=== PATIENT | female | born 1930 | race Caucasian/White ===

== ENCOUNTER → 2019-02-05 | Outpatient (CLI) | payer MEDICARE, OTHER ==
--- NOTE | 2019-02-06 11:17 | ECHOF ---
Referral Reason:I48.91 Persistent atrial fibrillation MEASUREMENTS -------- HEIGHT: 160.0 cm WEIGHT: 45.4 kg BP: RVIDd: 2.8 cm (< 3.3) IVSd: 0.8 cm (0.6 - 1.1) LVIDd: 4.2 cm (3.9 - 5.3) LVPWd: 1.1 cm (0.6 - 1.1) IVSs: 1.2 cm LVIDs: 2.8 cm LVPWs: 1.6 cm LA Diam: 5.0 cm (2.7 - 3.8) LAESV Index (A-L): 39.55 ml/m Ao Diam: 2.3 cm (2.0 - 3.7) AV Cusp: 1.3 cm (1.5 - 2.6) LA Diam: 4.5 cm (2.7 - 3.8) MV EXCURSION: 16.920 mm (> 18.000) MV EF SLOPE: 113 mm/s (70 - 150) EPSS: 0.3 cm RAP: 5.00 mmHg RVSP: 39.34 mmHg TAPSE: 21.87 mm FINDINGS -------- Atrial fibrillation. This was a technically adequate study. The left ventricular size is normal. Left ventricular wall thickness is normal. There is mild evelin bal hypokinesis of LV . Overall left ventricular systolic function is mildly impaired with, an EF b etween 45 - 50 %. Left ventricular fillimg pressure cannot be estimated due to Atrial fibrillation. The right ventricle is normal in size. LA is severely dilated >40 ml/m2 The right atrial size is normal. There is mild to moderate aortic valve sclerosis. There is no evidence of aortic regurgitation. Moderate mitral annular calcification present. Severe mitral regurgitation is present. Mild tricuspid regurgitation present. There is mild pulmonary hypertension. There is no pulmonic regurgitation present. The aortic root size is normal. There is no pericardial effusion. CONCLUSIONS -------- 1. Atrial fibrillation. 2. This was a technically adequate study. 3. The left ventricular size is normal. 4. Left ventricular wall thickness is normal. 5. There is mild global hypokinesis of LV . 6. Overall left ventricular systolic function is mildly impaired with, an EF between 45 - 50 %. 7. Left ventricular fillimg pressure cannot be estimated due to Atrial fibrillation. 8. LA is severely dilated >40 ml/m2 9. There is mild to moderate aortic valve sclerosis. 10. Moderate mitral annular calcification present. 11. Severe mitral regurgitation is present. 12. Mild tricuspid regurgitation present. 13. There is mild pulmonary hypertension. 14. There is no pulmonic regurgitation present. 15. The aortic root size is normal. 16. There is no pericardial effusion. BEAM WARPER: Tiffany Goldstein RDCS
== END | disposition home or self-care (01) ==
LOC: RADECHMAIN 14:52
PROVIDERS: ATTEND Internal Medicine
DX: I48.91 Unspecified atrial fibrillation (principal); I08.1 Rheumatic disorders of both mitral and tricuspid valves; I27.20 Pulmonary hypertension, unspecified
CPT/HCPCS: 93306

== ENCOUNTER 2021-02-21 14:12 | Inpatient (IN) | payer MEDICARE, OTHER ==
[2021-02-21 17:07] LABS: Basophils % (A) 0 %; Eosinophils # (A) 0.1 k/uL (0-0.7); Eosinophils % (A) 1 %; HCT 51.1 % (34.0-46.0); HGB 17.3 gm/dL (11.4-16.0); Lymphocytes # (A) 2.2 k/uL (1.0-4.8); Lymphocytes % (A) 15 %; MCH 33.5 pg (25.0-35.0); MCHC 33.9 g/dL (31.0-37.0); MCV 98.8 fL (80.0-100.0); Mean Platelet Volume 11.2; Monocytes # (A) 0.9 k/uL (0-1.0); Monocytes % (A) 6 %; Neutrophils # (A) 11.2 k/uL (1.3-7.7); Neutrophils % (A) 77 %; Platelet Count 199 k/uL (150-450); RBC 5.17 m/uL (3.80-5.40); RDW 12.6 % (11.5-15.5); WBC 14.6 k/uL (3.8-10.6)
[2021-02-21 17:16] LABS: ALT 29 U/L (4-34); AST 32 U/L (14-36); African American GFR (CKD) >90 (>60 ml/min/1.73 sqM); Albumin 3.8 g/dL (3.5-5.0); Alkaline Phosphatase 121 U/L (38-126); Anion Gap 9 mmol/L; Blood Urea Nitrogen 25 mg/dL (7-17); Calcium 9.2 mg/dL (8.4-10.2); Carbon Dioxide 38 mmol/L (22-30); Chloride 84 mmol/L (98-107); Glucose 123 mg/dL (74-99); Non-African American GFR(CKD) 89 (>60 ml/min/1.73 sqM); Sodium 131 mmol/L (137-145); Total Bilirubin 1.4 mg/dL (0.2-1.3); Total Protein 6.4 g/dL (6.3-8.2)
[2021-02-21 18:45] LABS: Appearance,Urine Clear (Clear); Bacteria,Urine Rare /hpf; Bilirubin,Urine Negative (Negative); Blood,Urine Negative (Negative); Color,Urine Yellow; Glucose,Urine (UA) Trace (Negative); Hyaline Casts,Urine 6 /lpf (0-2); Ketones,Urine Negative (Negative); Leukocyte Esterase,Urine Negative (Negative); Mucus,Urine Many /hpf; Nitrite,Urine Negative (Negative); PH, Urine 5.5 (5.0-8.0); Protein,Urine 1+ (Negative); RBC,Urine 1 /hpf (0-5); Squamous Epithelial Cell,Urine 1 /hpf (0-4); WBC,Urine 2 /hpf (0-5)
[2021-02-21] MEDS ORDERED: SODIUM CHLORIDE 0.9% 1,000 ML IV STA ×2 (19:34→21:42)
--- NOTE | 2021-02-21 19:40 | ED ---
General Adult HPI - General Source: patient Mode of arrival: ambulatory Limitations: no limitations <Heidi Hills - Last Filed: 02/22/21 02:54> <Kendrick Estrada - Last Filed: 02/23/21 03:13> - General Chief complaint: Nausea/Vomiting/Diarrhea Stated complaint: possible dehydration, dark stool Time Seen by Provider: 02/21/21 19:10 - History of Present Illness Initial comments: 89-year-old female with a history of atrial fibrillation, previous NC, and hypertension, presents to the emergency department, accompanied by her daughter, for evaluation of weakness. Daughter reports patient had 3-4 consecutive days of vomiting last week in which her emesis was very dark in color. Daughter also reports patient had dark stool on Sunday. Patient states she had no appetite throughout the weekend, but it is beginning to return. Complains of dizziness and weakness at this time. Patient does report taking Eliquis for her A. fib. States she also was prescribed Zofran by her primary care provider which helped to alleviate her nausea and vomiting. Patient denies fever, chills, headache, chest pain, shortness of breath, abdominal pain, and dysuria. (Heidi Hills) - Related Data Home Medications Medication Instructions Recorded Confirmed Apixaban [Eliquis] 2.5 mg PO BID 02/21/21 02/21/21 Aspirin EC [Ecotrin Low Dose] 81 mg PO DAILY 02/21/21 02/21/21 Metoprolol Tartrate [Lopressor] 37.5 mg PO BID 02/21/21 02/21/21 Ondansetron HCl [Zofran] 4 mg PO Q12H PRN 02/21/21 02/21/21 Vit C/E/Zn/Coppr/Lutein/Zeaxan 1 cap PO BID 02/21/21 02/21/21 [Preservision Areds 2 Softgel] Allergies Allergy/AdvReac Type Severity Reaction Status Date / Time No Known Allergies Allergy Verified 02/21/21 22:50 Review of Systems ROS Other: All systems not noted in ROS Statement are negative. <Heidi Hills - Last Filed: 02/22/21 02:54> ROS Other: All systems not noted in ROS Statement are negative. <Kendrick Estrada - Last Filed: 02/23/21 03:13> ROS Statement: Those systems with pertinent positive or pertinent negative responses have been documented in the HPI. Past Medical History Past Medical History: Atrial Fibrillation, Hypertension, Myocardial Infarction (NC) Past Surgical History: No Surgical Hx Reported Smoking Status: Former smoker Past Alcohol Use History: None Reported Past Drug Use History: None Reported <Heidi Hills - Last Filed: 02/22/21 02:54> - Past Family History Mother Sister(s) Family Medical History: No Reported History (Not applicable due to patient's advanced age) <BarbyanKendrick - Last Filed: 02/23/21 03:13> General Exam Limitations: no limitations General appearance: alert, in no apparent distress (Patient appears fatigued but is alert and oriented and responds to questions appropriately) ENT exam: Present: normal exam, normal oropharynx, mucous membranes moist Respiratory exam: Present: normal lung sounds bilaterally. Absent: respiratory distress, wheezes, rales, rhonchi, stridor Cardiovascular Exam: Present: tachycardia, irregular rhythm (Patient's baseline rhythm is atrial fibrillation) GI/Abdominal exam: Present: soft, normal bowel sounds. Absent: distended, tenderness, guarding, rebound Rectal exam: Present: heme (+) stool Neurological exam: Present: alert, oriented X3 Psychiatric exam: Present: normal affect, normal mood Skin exam: Present: warm, dry, intact <Heidi Hills - Last Filed: 02/22/21 02:54> Course Vital Signs 02/21/21 02/21/21 02/22/21 16:20 21:30 00:51 Temperature 98.2 F Pulse Rate 101 H 144 H 106 H Respiratory 18 18 20 Rate Blood Pressure 147/94 146/101 125/80 O2 Sat by Pulse 98 97 94 L Oximetry 02/22/21 02/22/21 02/22/21 02:39 06:00 06:37 Temperature Pulse Rate 101 H 104 H 131 H Respiratory 18 18 18 Rate Blood Pressure 125/80 131/81 131/81 O2 Sat by Pulse 95 95 93 L Oximetry 02/22/21 02/22/21 02/22/21 07:57 08:32 10:54 Temperature 98 F Pulse Rate 107 H 102 H Respiratory 20 20 Rate Blood Pressure 131/81 127/94 99/71 O2 Sat by Pulse 94 L 95 Oximetry Medical Decision Making - Lab Data Result diagrams: 02/21/21 16:57 02/21/21 16:57 - EKG Data -: EKG Interpreted by Me Rate: tachycardia <Heidi Hills - Last Filed: 02/22/21 02:54> - Lab Data Result diagrams: 02/22/21 07:23 02/22/21 07:23 <Kendrick Estrada - Last Filed: 02/23/21 03:13> - Medical Decision Making 89-year-old female is evaluated for decreased appetite, dark stool, and generalized weakness. Physical exam findings include patient with pallor, atrial fibrillation with rapid ventricular rate heart rate fluctuating between 120 and 150, and malaise. Patient was started on a Cardizem drip with improvement of heart rate. Pertinent lab findings include positive Hemoccult and altered electrolytes. Abnormal hemoglobin and hematocrit as well as urine findings were felt to be secondary to her decreased hydration status. Patient will be admitted for further evaluation and treatment. This patient's case was discussed with my attending Dr. Estrada. (Heidi Hills) I saw this patient in conjunction with the physician medical assistant per diem. I performed independent history and physical exam. Agree with case management. (Kendrick Estrada) - Lab Data Lab Results 02/21/21 02/21/21 02/21/21 Range/Units 16:57 16:57 18:32 WBC 14.6 H (3.8-10.6) k/uL RBC 5.17 (3.80-5.40) m/uL Hgb 17.3 H (11.4-16.0) gm/dL Hct 51.1 H (34.0-46.0) % MCV 98.8 (80.0-100.0) fL MCH 33.5 (25.0-35.0) pg MCHC 33.9 (31.0-37.0) g/dL RDW 12.6 (11.5-15.5) % Plt Count 199 (150-450) k/uL MPV 11.2 Absolute Nucleated RBC (0.00-0.00) X 10*3/uL Neutrophils % 77 % Lymphocytes % 15 % Monocytes % 6 % Eosinophils % 1 % Basophils % 0 % Neutrophils # 11.2 H (1.3-7.7) k/uL Lymphocytes # 2.2 (1.0-4.8) k/uL Monocytes # 0.9 (0-1.0) k/uL Eosinophils # 0.1 (0-0.7) k/uL Basophils # 0.0 (0-0.2) k/uL NRBC/100 WBC Diff (0.0-0.0) /100 WBCS PT (9.0-12.0) sec INR (<1.2) APTT (22.0-30.0) sec Sodium 131 L (137-145) mmol/L Potassium 3.0 L (3.5-5.1) mmol/L Chloride 84 L (98-107) mmol/L Carbon Dioxide 38 H (22-30) mmol/L Anion Gap 9 mmol/L BUN 25 H (7-17) mg/dL Creatinine 0.46 L (0.52-1.04) mg/dL Est GFR (CKD-EPI)AfAm >90 (>60 ml/min/1.73 sqM) Est GFR (CKD-EPI)NonAf 89 (>60 ml/min/1.73 sqM) Glucose 123 H (74-99) mg/dL Plasma Lactic Acid Michele (0.7-2.0) mmol/L Calcium 9.2 (8.4-10.2) mg/dL Magnesium (1.6-2.3) mg/dL Total Bilirubin 1.4 H (0.2-1.3) mg/dL AST 32 (14-36) U/L ALT 29 (4-34) U/L Alkaline Phosphatase 121 (38-126) U/L Troponin I (0.000-0.034) ng/mL Total Protein 6.4 (6.3-8.2) g/dL Albumin 3.8 (3.5-5.0) g/dL Globulin g/dL Albumin/Globulin Ratio Urine Color Yellow Urine Appearance Clear (Clear) Urine pH 5.5 (5.0-8.0) Ur Specific Howells 1.020 (1.001-1.035) Urine Protein 1+ H (Negative) Urine Glucose (UA) Trace H (Negative) Urine Ketones Negative (Negative) Urine Blood Negative (Negative) Urine Nitrite Negative (Negative) Urine Bilirubin Negative (Negative) Urine Urobilinogen 3.0 (<2.0) mg/dL Ur Leukocyte Esterase Negative (Negative) Urine RBC 1 (0-5) /hpf Urine WBC 2 (0-5) /hpf Ur Squamous Epith Cells 1 (0-4) /hpf Urine Bacteria Rare H (None) /hpf Hyaline Casts 6 H (0-2) /lpf Urine Mucus Many H (None) /hpf Stool Occult Blood (Negative) Coronavirus (PCR) (Not Detectd) 02/21/21 02/21/21 02/21/21 Range/Units 20:42 20:42 20:42 WBC (3.8-10.6) k/uL RBC (3.80-5.40) m/uL Hgb (11.4-16.0) gm/dL Hct (34.0-46.0) % MCV (80.0-100.0) fL MCH (25.0-35.0) pg MCHC (31.0-37.0) g/dL RDW (11.5-15.5) % Plt Count (150-450) k/uL MPV Absolute Nucleated RBC (0.00-0.00) X 10*3/uL Neutrophils % % Lymphocytes % % Monocytes % % Eosinophils % % Basophils % % Neutrophils # (1.3-7.7) k/uL Lymphocytes # (1.0-4.8) k/uL Monocytes # (0-1.0) k/uL Eosinophils # (0-0.7) k/uL Basophils # (0-0.2) k/uL NRBC/100 WBC Diff (0.0-0.0) /100 WBCS PT 10.4 (9.0-12.0) sec INR 1.0 (<1.2) APTT 22.2 (22.0-30.0) sec Sodium (137-145) mmol/L Potassium (3.5-5.1) mmol/L Chloride (98-107) mmol/L Carbon Dioxide (22-30) mmol/L Anion Gap mmol/L BUN (7-17) mg/dL Creatinine (0.52-1.04) mg/dL Est GFR (CKD-EPI)AfAm (>60 ml/min/1.73 sqM) Est GFR (CKD-EPI)NonAf (>60 ml/min/1.73 sqM) Glucose (74-99) mg/dL Plasma Lactic Acid Michele 1.4 (0.7-2.0) mmol/L Calcium (8.4-10.2) mg/dL Magnesium 2.2 (1.6-2.3) mg/dL Total Bilirubin (0.2-1.3) mg/dL AST (14-36) U/L ALT (4-34) U/L Alkaline Phosphatase (38-126) U/L Troponin I (0.000-0.034) ng/mL Total Protein (6.3-8.2) g/dL Albumin (3.5-5.0) g/dL Globulin g/dL Albumin/Globulin Ratio Urine Color Urine Appearance (Clear) Urine pH (5.0-8.0) Ur Specific Howells (1.001-1.035) Urine Protein (Negative) Urine Glucose (UA) (Negative) Urine Ketones (Negative) Urine Blood (Negative) Urine Nitrite (Negative) Urine Bilirubin (Negative) Urine Urobilinogen (<2.0) mg/dL Ur Leukocyte Esterase (Negative) Urine RBC (0-5) /hpf Urine WBC (0-5) /hpf Ur Squamous Epith Cells (0-4) /hpf Urine Bacteria (None) /hpf Hyaline Casts (0-2) /lpf Urine Mucus (None) /hpf Stool Occult Blood (Negative) Coronavirus (PCR) (Not Detectd) 02/21/21 02/21/21 02/22/21 Range/Units 20:42 22:48 02:39 WBC (3.8-10.6) k/uL RBC (3.80-5.40) m/uL Hgb (11.4-16.0) gm/dL Hct (34.0-46.0) % MCV (80.0-100.0) fL MCH (25.0-35.0) pg MCHC (31.0-37.0) g/dL RDW (11.5-15.5) % Plt Count (150-450) k/uL MPV Absolute Nucleated RBC (0.00-0.00) X 10*3/uL Neutrophils % % Lymphocytes % % Monocytes % % Eosinophils % % Basophils % % Neutrophils # (1.3-7.7) k/uL Lymphocytes # (1.0-4.8) k/uL Monocytes # (0-1.0) k/uL Eosinophils # (0-0.7) k/uL Basophils # (0-0.2) k/uL NRBC/100 WBC Diff (0.0-0.0) /100 WBCS PT (9.0-12.0) sec INR (<1.2) APTT (22.0-30.0) sec Sodium (137-145) mmol/L Potassium (3.5-5.1) mmol/L Chloride (98-107) mmol/L Carbon Dioxide (22-30) mmol/L Anion Gap mmol/L BUN (7-17) mg/dL Creatinine (0.52-1.04) mg/dL Est GFR (CKD-EPI)AfAm (>60 ml/min/1.73 sqM) Est GFR (CKD-EPI)NonAf (>60 ml/min/1.73 sqM) Glucose (74-99) mg/dL Plasma Lactic Acid Michele (0.7-2.0) mmol/L Calcium (8.4-10.2) mg/dL Magnesium (1.6-2.3) mg/dL Total Bilirubin (0.2-1.3) mg/dL AST (14-36) U/L ALT (4-34) U/L Alkaline Phosphatase (38-126) U/L Troponin I 0.013 (0.000-0.034) ng/mL Total Protein (6.3-8.2) g/dL Albumin (3.5-5.0) g/dL Globulin g/dL Albumin/Globulin Ratio Urine Color Urine Appearance (Clear) Urine pH (5.0-8.0) Ur Specific Howells (1.001-1.035) Urine Protein (Negative) Urine Glucose (UA) (Negative) Urine Ketones (Negative) Urine Blood (Negative) Urine Nitrite (Negative) Urine Bilirubin (Negative) Urine Urobilinogen (<2.0) mg/dL Ur Leukocyte Esterase (Negative) Urine RBC (0-5) /hpf Urine WBC (0-5) /hpf Ur Squamous Epith Cells (0-4) /hpf Urine Bacteria (None) /hpf Hyaline Casts (0-2) /lpf Urine Mucus (None) /hpf Stool Occult Blood Positive H (Negative) Coronavirus (PCR) Not Detected (Not Detectd) 02/22/21 02/22/21 Range/Units 07:23 07:23 WBC 8.81 (3.8-10.6) k/uL RBC 4.20 (3.80-5.40) m/uL Hgb 13.6 (11.4-16.0) gm/dL Hct 40.4 (34.0-46.0) % MCV 96.2 (80.0-100.0) fL MCH 32.4 H (25.0-35.0) pg MCHC 33.7 (31.0-37.0) g/dL RDW 13.3 (11.5-15.5) % Plt Count 164 (150-450) k/uL MPV 13.7 H Absolute Nucleated RBC 0 (0.00-0.00) X 10*3/uL Neutrophils % % Lymphocytes % % Monocytes % % Eosinophils % % Basophils % % Neutrophils # (1.3-7.7) k/uL Lymphocytes # (1.0-4.8) k/uL Monocytes # (0-1.0) k/uL Eosinophils # (0-0.7) k/uL Basophils # (0-0.2) k/uL NRBC/100 WBC Diff 0 (0.0-0.0) /100 WBCS PT (9.0-12.0) sec INR (<1.2) APTT (22.0-30.0) sec Sodium 133 L (137-145) mmol/L Potassium 3.0 L (3.5-5.1) mmol/L Chloride 92 L (98-107) mmol/L Carbon Dioxide 37 H (22-30) mmol/L Anion Gap 4 mmol/L BUN 15 (7-17) mg/dL Creatinine 0.42 L (0.52-1.04) mg/dL Est GFR (CKD-EPI)AfAm >90 (>60 ml/min/1.73 sqM) Est GFR (CKD-EPI)NonAf >90 (>60 ml/min/1.73 sqM) Glucose 96 (74-99) mg/dL Plasma Lactic Acid Michele (0.7-2.0) mmol/L Calcium 8.1 L (8.4-10.2) mg/dL Magnesium (1.6-2.3) mg/dL Total Bilirubin 1.5 H (0.2-1.3) mg/dL AST 24 (14-36) U/L ALT 21 (4-34) U/L Alkaline Phosphatase 75 (38-126) U/L Troponin I (0.000-0.034) ng/mL Total Protein 4.9 L (6.3-8.2) g/dL Albumin 2.7 L (3.5-5.0) g/dL Globulin 2.2 g/dL Albumin/Globulin Ratio 1.2 Urine Color Urine Appearance (Clear) Urine pH (5.0-8.0) Ur Specific Howells (1.001-1.035) Urine Protein (Negative) Urine Glucose (UA) (Negative) Urine Ketones (Negative) Urine Blood (Negative) Urine Nitrite (Negative) Urine Bilirubin (Negative) Urine Urobilinogen (<2.0) mg/dL Ur Leukocyte Esterase (Negative) Urine RBC (0-5) /hpf Urine WBC (0-5) /hpf Ur Squamous Epith Cells (0-4) /hpf Urine Bacteria (None) /hpf Hyaline Casts (0-2) /lpf Urine Mucus (None) /hpf Stool Occult Blood (Negative) Coronavirus (PCR) (Not Detectd) - EKG Data EKG Comments: EKG was obtained at 2011 and shows atrial fibrillation with rapid ventricular response, anterior infarct, marked ST abnormality. Ventricular rate 158, MS interval indeterminate, QRS duration 82, QT/QTC 308/499. (Heidi Hills) Critical Care Time Critical Care Time: Yes Total Critical Care Time: 31 <Heidi Hills - Last Filed: 02/22/21 02:54> Disposition Decision Date: 02/22/21 Decision Time: 02:00 <Heidi Hills - Last Filed: 02/22/21 02:54> <Kendrick Estrada - Last Filed: 02/23/21 03:13> Clinical Impression: Atrial fibrillation with RVR, Dehydration, Lower GI bleed Disposition: ADMITTED IP TO THIS [facility] Condition: Serious
[2021-02-21] MEDS ORDERED: DILTIAZEM DRIP BOLUS FROM BAG 1 MG SOLN IV ONE ×2 (20:26)
[2021-02-21 21:02] LABS: Partial Thromboplastin Time 22.2 sec (22.0-30.0); Prothrombin Time 10.4 sec (9.0-12.0)
[2021-02-21] MEDS ORDERED: POTASSIUM CHLORIDE 10 MEQ in WATER FOR INJECTION 1 100ML.BAG IVPB STA (21:30)
--- NOTE | 2021-02-21 22:44 | XR ---
EXAMINATION TYPE: XR chest 2V DATE OF EXAM: 02/21/2021 COMPARISON: NONE HISTORY: Fatigue TECHNIQUE: 2 views FINDINGS: There is large hiatal hernia. Lungs are clear of infiltrate. There is some mild pleural and pulmonary scarring at the right lung apex. Costophrenic angles are clear. There are no hilar masses. IMPRESSION: No active cardiopulmonary disease. Large hiatal hernia.
[2021-02-21] MEDS ORDERED: DILTIAZEM 125 MG in SODIUM CHLORIDE 0.9% 100 ML IV SCH (23:00)
[2021-02-22] MEDS ORDERED: PANTOPRAZOLE 40 MG/10 ML VIAL IVP STA (01:21)
[2021-02-22] MEDS ORDERED: NALOXONE 0.4 MG/ML 1 ML VIAL IV PRN (01:41)
--- NOTE | 2021-02-22 02:08 | P.HPIM ---
History of Present Illness H&P Date: 02/22/21 The patient is an 89-year-old female with a PMH of A. megha on Eliquis who presented to the emergency room with complaints of black vomitus and stools. The history supplemented by the daughter at the bedside. The patient was slightly confused at time of interview. The patient for stat she initially started having nausea with numerous episodes of vomiting roughly 67 days ago. She had 3 days of vomiting after which she noticed some black tarry material in the vomitus. She felt dehydrated and fatigued by that time due to her poor oral intake. She then proceeded to have a bowel movement which also had some black tarry material in it, at which time her daughter became alarmed and decided to b ring her to the emergency room. Patient reports that she has not had any further episodes of vomiting with a past 2-3 days. She denied abdominal pain. Also denied fever, chills, chest pain, shortness of breath. Denied headaches, weakness, numbness, tingling. The patient underwent an extensive evaluation in the emergency room with a chest x-ray showing large hiatal hernia. EKG revealed A. fib with RVR at 158 bpm. Laboratory evaluation was remarkable for leukocytosis of 14.6, hemoglobin 17.3, sodium 131, potassium 3.0, chloride 84, CO2 38, BUN 25, creatinine 0.46, lactic acid 1.4, magnesium 2.2, total bilirubin 1.4, troponin 0.013, UA unremarkable, and a stool occult blood positive. Chase luong was given IV fluids, IV Protonix, and potassium and was started on a Cardizem infusion and subsequently admitted to the medicine service with surgery in consult. Review of systems: Pertinent positives and negatives as discussed in HPI, a complete review of systems was performed and all other systems are negative. Physical examination: General: non toxic, no distress, appears at stated age, frail Derm: no unusual rashes/lesions no unusual ecchymoses, warm, dry Head: atraumatic, normocephalic, symmetric Eyes: EOMI, no lid lag, anicteric sclera, pupils equal round reactive to light ENT: Nose and ears atraumatic, no thrush, no pharyngeal erythema Neck: No thyromegaly, no cervical lymphadenopathy, trachea midline, supple Mouth: no lip lesion, mucus membranes moist Cardiovascular: S1S2 reg, no murmur, positive posterior tibial pulse bilateral, no edema, capillary refill less than 2 seconds Lungs: CTA bilateral, no rhonchi, no rales , no accessory muscle use Abdominal: soft, nontender to palpation, no guarding, no appreciable organomegaly, normal bowel sounds Ext: no gross muscle atrophy, muscle strength 5 out of 5 in all 4 extremities grossly, no contractures, Neuro: CN II-XI grossly intact, light touch intact all 4 extremities, finger to nose within normal limits, Psych: Alert, oriented, appropriate affect Assessment/plan A. fib with RVR -Continue with Cardizem infusion -Hold off on antifungal agent at this time due to patient's reports of black tarry stools and vomitus -Cardiac monitoring Black tarry stools and vomitus -Trend hemoglobin for now -Surgery consulted Hypochloremia and hyponatremia, likely due to poor oral intake and nausea vomiting -Continue with gentle IV hydration and monitor for now Hypokalemia -Replace and monitor Metabolic alkalosis -Likely due to vomiting -Continue with IV fluids and monitor DVT prophylaxis -IPCDs The patient is admitted with an anticipated less than 2 midnight stay for evaluation of afib, rvr CODE STATUS: Full Code Discussed with: Patient, daughter Anticipated discharge date: in am Anticipated discharge place: Home Past Medical History Past Medical History: Atrial Fibrillation, Hypertension, Myocardial Infarction (OR) Past Surgical History: No Surgical Hx Reported Smoking Status: Former smoker Past Alcohol Use History: None Reported Past Drug Use History: None Reported - Past Family History Mother Sister(s) Family Medical History: No Reported History (Not applicable due to patient's advanced age) Medications and Allergies Home Medications Medication Instructions Recorded Confirmed Type Apixaban [Eliquis] 2.5 mg PO BID 02/21/21 02/21/21 History Aspirin EC [Ecotrin Low Dose] 81 mg PO DAILY 02/21/21 02/21/21 History Metoprolol Tartrate [Lopressor] 37.5 mg PO BID 02/21/21 02/21/21 History Ondansetron HCl [Zofran] 4 mg PO Q12H PRN 02/21/21 02/21/21 History Vit C/E/Zn/Coppr/Lutein/Zeaxan 1 cap PO BID 02/21/21 02/21/21 History [Preservision Areds 2 Softgel] Allergies Allergy/AdvReac Type Severity Reaction Status Date / Time No Known Allergies Allergy Verified 02/21/21 22:50 Physical Exam Vitals: Vital Signs Temp Pulse Resp BP Pulse Ox 02/22/21 00:51 106 H 20 125/80 94 L 02/21/21 21:30 144 H 18 146/101 97 02/21/21 16:20 98.2 F 101 H 18 147/94 98 Intake and Output 02/21/21 02/21/21 02/22/21 14:59 22:59 06:59 Other: Weight 48.534 kg Results CBC & Chem 7: 02/21/21 16:57 02/21/21 16:57 Labs: Abnormal Lab Results - Last 24 Hours (Table) 02/21/21 02/21/21 02/21/21 Range/Units 16:57 16:57 18:32 WBC 14.6 H (3.8-10.6) k/uL Hgb 17.3 H (11.4-16.0) gm/dL Hct 51.1 H (34.0-46.0) % Neutrophils # 11.2 H (1.3-7.7) k/uL Sodium 131 L (137-145) mmol/L Potassium 3.0 L (3.5-5.1) mmol/L Chloride 84 L (98-107) mmol/L Carbon Dioxide 38 H (22-30) mmol/L BUN 25 H (7-17) mg/dL Creatinine 0.46 L (0.52-1.04) mg/dL Glucose 123 H (74-99) mg/dL Total Bilirubin 1.4 H (0.2-1.3) mg/dL Urine Protein 1+ H (Negative) Urine Glucose (UA) Trace H (Negative) Urine Bacteria Rare H (None) /hpf Hyaline Casts 6 H (0-2) /lpf Urine Mucus Many H (None) /hpf Stool Occult Blood (Negative) 02/21/21 Range/Units 22:48 WBC (3.8-10.6) k/uL Hgb (11.4-16.0) gm/dL Hct (34.0-46.0) % Neutrophils # (1.3-7.7) k/uL Sodium (137-145) mmol/L Potassium (3.5-5.1) mmol/L Chloride (98-107) mmol/L Carbon Dioxide (22-30) mmol/L BUN (7-17) mg/dL Creatinine (0.52-1.04) mg/dL Glucose (74-99) mg/dL Total Bilirubin (0.2-1.3) mg/dL Urine Protein (Negative) Urine Glucose (UA) (Negative) Urine Bacteria (None) /hpf Hyaline Casts (0-2) /lpf Urine Mucus (None) /hpf Stool Occult Blood Positive H (Negative)
[2021-02-22] MEDS: SODIUM CHLORIDE 0.9% 1,000 ML IV SCH ×3 (02:36→15:44)
[2021-02-22] MEDS: POTASSIUM CHLORIDE ER 20 MEQ TAB.ER PO SCH ×2 (05:12→06:36)
[2021-02-22 08:08] LABS: ALT 21 U/L (4-34); AST 24 U/L (14-36); African American GFR (CKD) >90 (>60 ml/min/1.73 sqM); Albumin 2.7 g/dL (3.5-5.0); Albumin/Globulin Ratio 1.2; Alkaline Phosphatase 75 U/L (38-126); Anion Gap 4 mmol/L; Blood Urea Nitrogen 15 mg/dL (7-17); Calcium 8.1 mg/dL (8.4-10.2); Carbon Dioxide 37 mmol/L (22-30); Chloride 92 mmol/L (98-107); Globulin 2.2 g/dL; Glucose 96 mg/dL (74-99); Non-African American GFR(CKD) >90 (>60 ml/min/1.73 sqM); Sodium 133 mmol/L (137-145); Total Bilirubin 1.5 mg/dL (0.2-1.3); Total Protein 4.9 g/dL (6.3-8.2)
[2021-02-22] MEDS ORDERED: METOPROLOL TARTRATE 12.5 MG TAB PO SCH (09:00)
[2021-02-22] MEDS ORDERED: METOPROLOL TARTRATE 12.5 MG TAB PO STA (10:32)
--- NOTE | 2021-02-22 11:06 | P.PN ---
Subjective Progress Note Date: 02/22/21 Hospital course: Patient is a very pleasant 89-year-old female with a past medical history of atrial fibrillation on Eliquis GERD, and hypertension. She presented to the emergency department with a chief complaint of black tarry emesis and stools. Patient reports that she must have had a viral bug and has been having persistent nausea and vomiting for several days to a week. She states that over the past 3 days she noticed dark colored almost black vomit and black stool. She denies having any diarrhea or hematochezia. She reports nausea, weakness, fatigue and anorexia accompanied this persistent nausea and vomiting. She denies history of GI bleeds, having any abdominal pain or discomfort, fevers, chills, diaphoresis, headache, lightheadedness, dizziness, chest pain, palpitations, shortness of breath, dyspnea with exertion, or any other complaint s at this time. In the emergency department patient was found to be in A. fib RVR with EKG revealing A. fib RVR to 158 bpm. A chest x-ray was then completed revealing a large hiatal hernia. Patient admitted under our services with consultation to cardiology, Dr. Thomas and general surgery, Dr. Brar. Physical exam: Patient seen and fully evaluated at the bedside. She reports that she does have an appetite this morning and has not had any further episodes of nausea or vomiting. She denies having any abdominal pain or discomfort. She remains no thing by mouth pending evaluation and recommendations from general surgery. Hemoglobin is stable at 13.6 this morning. Potassium 3.0 orders for replacement. We will continue to monitor closely. Vital signs reviewed and stable. General: Nontoxic, no distress and appears stated age. Derm: Skin warm and dry, normal coloration for ethnicity. Head: Atraumatic, normocephalic and symmetric. Eyes: EOMs intact, no lid lag, and anicteric sclera Mouth: no lip lesions, mucus membranes moist Cardiovascular: regular rate and rhythm with normal S1S2, no murmur, positive posterior tibial pulses bilaterally, and cap refill < 2 seconds. Lungs: Respirations even, regular, and unlabored on room air. Lungs CTA bilaterally, no rhonchi, no rales, no wheezing, and no accessory muscle usage. Abdominal: soft, nontender to palpation, no guarding, no appreciable organomegaly Ext: ROM intact. No gross muscle atrophy, no edema, no contractures Neuro: Speech clear, face symmetrical and CN II-XII grossly intact with no noted focal neuro deficits Psych: Alert and oriented to person, place, time, and situation. Appropriate and pleasant affect. Assessment and Plan of Care: Atrial fibrillation with RVR, ventricular rate currently controlled -Cardizem infusion was discontinued, metoprolol dose increased to 50 mg twice a day -Cardiology following -Continue to hold Eliquis secondary to patient's reports of black tarry stools and emesis. -Cardiac monitoring Large hiatal hernia Rule out GI bleed secondary to reports of black tarry stools and emesis -Hemoglobin stable -Continue to hold Eliquis -Gen. Surgery consulted, Dr. Brar. Appreciate further recommendations. -Nothing by mouth until cleared by general surgery. Hypochloremia and hyponatremia, likely due to poor oral intake and nausea vomiting -Continue with gentle IV hydration and monitor for now Hypokalemia -Replace and monitor Non-anion gap Metabolic alkalosis -Likely due to vomiting -Continue with IV fluids and monitor The patient is admitted with an anticipated less than 2 midnight stay for evaluation of afib, rvr CODE STATUS: Full Code DVT prophylaxis: Mechanical Discussed with: Patient and RN Anticipated discharge date Clinical course to determine Anticipated discharge place: Home A total of 45 minutes was spent on the care of this complex patient more than 50% of the time was spent in counseling and care coordination. Objective - Vital Signs Vital signs: Vital Signs Temp 98 F 02/22/21 10:54 Pulse 102 H 02/22/21 10:54 Resp 20 02/22/21 10:54 BP 99/71 02/22/21 10:54 Pulse Ox 95 02/22/21 10:54 Intake & Output 02/21/21 02/22/21 02/22/21 18:59 06:59 18:59 Weight 48.534 kg - Labs CBC & Chem 7: 02/22/21 07:23 02/22/21 07:23 Labs: Abnormal Lab Results - Last 24 Hours (Table) 02/21/21 02/21/21 02/21/21 Range/Units 16:57 16:57 18:32 WBC 14.6 H (3.8-10.6) k/uL Hgb 17.3 H (11.4-16.0) gm/dL Hct 51.1 H (34.0-46.0) % Neutrophils # 11.2 H (1.3-7.7) k/uL Sodium 131 L (137-145) mmol/L Potassium 3.0 L (3.5-5.1) mmol/L Chloride 84 L (98-107) mmol/L Carbon Dioxide 38 H (22-30) mmol/L BUN 25 H (7-17) mg/dL Creatinine 0.46 L (0.52-1.04) mg/dL Glucose 123 H (74-99) mg/dL Calcium (8.4-10.2) mg/dL Total Bilirubin 1.4 H (0.2-1.3) mg/dL Total Protein (6.3-8.2) g/dL Albumin (3.5-5.0) g/dL Urine Protein 1+ H (Negative) Urine Glucose (UA) Trace H (Negative) Urine Bacteria Rare H (None) /hpf Hyaline Casts 6 H (0-2) /lpf Urine Mucus Many H (None) /hpf Stool Occult Blood (Negative) 02/21/21 02/22/21 Range/Units 22:48 07:23 WBC (3.8-10.6) k/uL Hgb (11.4-16.0) gm/dL Hct (34.0-46.0) % Neutrophils # (1.3-7.7) k/uL Sodium 133 L (137-145) mmol/L Potassium 3.0 L (3.5-5.1) mmol/L Chloride 92 L (98-107) mmol/L Carbon Dioxide 37 H (22-30) mmol/L BUN (7-17) mg/dL Creatinine 0.42 L (0.52-1.04) mg/dL Glucose (74-99) mg/dL Calcium 8.1 L (8.4-10.2) mg/dL Total Bilirubin 1.5 H (0.2-1.3) mg/dL Total Protein 4.9 L (6.3-8.2) g/dL Albumin 2.7 L (3.5-5.0) g/dL Urine Protein (Negative) Urine Glucose (UA) (Negative) Urine Bacteria (None) /hpf Hyaline Casts (0-2) /lpf Urine Mucus (None) /hpf Stool Occult Blood Positive H (Negative)
[2021-02-22 12:13] LABS: HCT 40.4 % (37.2-46.3); HGB 13.6 g/dL (12.0-15.0); MCH 32.4 pg (27.0-32.0); MCHC 33.7 g/dL (32.0-37.0); MCV 96.2 fL (80.0-97.0); Mean Platelet Volume 13.7 fL (9.5-12.2); Platelet Count 164 X 10*3/uL (140-440); RDW 13.3 % (11.5-14.5); WBC 8.81 X 10*3/uL (4.50-10.00)
--- NOTE | 2021-02-22 12:14 | P.CRDCN ---
History of Present Illness History of present illness: HISTORY OF PRESENTING ILLNESS This is a pleasant 89-year-old female past medical history significant for atrial fibrillation and hypertension. She does not follow with a cardiolog ist. She states she was diagnosed by her primary care physician approximately 2 years ago with atrial fibrillation. She is not sure if she isn't at all that time or if it comes and goes. We have been asked to see in consultation for A. fib with RVR. She presented to the hospital with a three-day history of nausea, vomiting dark emesis and one episode of black stool. On arrival to the emergency department she was found to be in A. fib with rapid ventricular rates. She has been initiated on a Cardizem infusion. The patient is seen and examined in the emergency department with her daughter at the bedside. She denies any symptoms related to A. fib. She has no chest pain, shortness of donnell ath, dizziness or palpitations. Overall she feels tired. She did test positive for occult blood in the stool. She is awaiting a surgical consultation as well. Eliquis has been placed on hold. Chest x-ray is negative for an acute cardiopulmonary process with evidence of a large hiatal hernia. Laboratory data reviewed, WBC 14.6, hemoglobin 17.3, platelets 199, sodium 131, potassium 3, creatinine 0.46, magnesium 2.2 and troponin negative 1 Previous echocardiogram obtained in 2019 revealed mildly impaired LV systolic function with global LV hypokinesia with ejection fraction 45-50%, severe mitral regurgitation, mild tricuspid regurgitation, mild pulmonary hypertension and of note she was in A. fib at that time. Current daily cardiac medications include Eliquis 2.5 mg twice a day, aspirin 81 mg daily and Lopressor 37.5 mg twice a day. REVIEW OF SYSTEMS At the time of my exam: CONSTITUTIONAL: Complains of generalized weakness and fatigue. Denies fever or chills. CARDIOVASCULAR: Denies chest pain, shortness of breath, orthopnea, PND or palpitations. RESPIRATORY: Denies cough. GASTROINTESTINAL: Denies abdominal pain, diarrhea, constipation, nausea or vomiting. MUSCULOSKELETAL: Denies myalgias. NEUROLOGIC: Denies numbness, tingling, headache or weakness. ENDOCRINE: Denies fatigue, weight change, polydipsia or polyurina. GENITOURINARY: Denies burning, hematuria or urgency with micturation. HEMATOLOGIC: Denies history of anemia or bleeding. PHYSICAL EXAMINATION Blood pressure 127/94 heart rate 107 afebrile and maintaining oxygen saturation on room air. CONSTITUTIONAL: No apparent distress. HEENT: Head is normocephalic. Pupils are equal, round. Sclerae anicteric. Mucous membranes of the mouth are moist. No JVD. No carotid bruit. CHEST EXAMINATION: Lungs are clear to auscultation. No chest wall tenderness is noted on palpation or with deep breathing. HEART EXAMINATION: Irregular rate and rhythm. S1, S2 heard. Systolic ejection murmur at the left sternal border and apex, no gallops or rub. ABDOMEN: Soft, nontender. EXTREMITIES: 2+ peripheral pulses, no lower extremity edema and no calf tenderness. NEUROLOGIC EXAMINATION: Patient is awake, alert and oriented x3. ASSESSMENT Chronic persistent atrial fibrillation with rapid ventricular rate Acute GI bleed Leukocytosis Hypokalemia Hypertension Dehydration PLAN Continue Cardizem infusion. Hold Eliquis and discontinue aspirin. Increase Lopressor to 50 mg twice a day. Repeat 2-D echocardiogram and Doppler study to assess cardiac structure and function. Further recommendations to follow based on clinical course. Thank you kindly for this consultation. Nurse Practitioner note has been reviewed, I agree with a documented findings and plan of care. Patient was seen and examined. Past Medical History Past Medical History: Atrial Fibrillation, Hypertension, Myocardial Infarction ([place]) Past Surgical History: No Surgical Hx Reported Smoking Status: Former smoker Past Alcohol Use History: None Reported Past Drug Use History: None Reported - Past Family History Mother Sister(s) Family Medical History: No Reported History (Not applicable due to patient's advanced age) Medications and Allergies Home Medications Medication Instructions Recorded Confirmed Type Apixaban [Eliquis] 2.5 mg PO BID 02/21/21 02/21/21 History Aspirin EC [Ecotrin Low Dose] 81 mg PO DAILY 02/21/21 02/21/21 History Metoprolol Tartrate [Lopressor] 37.5 mg PO BID 02/21/21 02/21/21 History Ondansetron HCl [Zofran] 4 mg PO Q12H PRN 02/21/21 02/21/21 History Vit C/E/Zn/Coppr/Lutein/Zeaxan 1 cap PO BID 02/21/21 02/21/21 History [Preservision Areds 2 Softgel] Allergies Allergy/AdvReac Type Severity Reaction Status Date / Time No Known Allergies Allergy Verified 02/21/21 22:50 Physical Exam Vitals: Vital Signs Temp Pulse Resp BP Pulse Ox 02/22/21 07:57 107 H 20 131/81 94 L 02/22/21 06:37 131 H 18 131/81 93 L 02/22/21 06:00 104 H 18 131/81 95 02/22/21 02:39 101 H 18 125/80 95 02/22/21 00:51 106 H 20 125/80 94 L 02/21/21 21:30 144 H 18 146/101 97 02/21/21 16:20 98.2 F 101 H 18 147/94 98 Intake and Output 02/21/21 02/22/21 02/22/21 22:59 06:59 14:59 Other: Weight 48.534 kg Results 02/21/21 16:57 02/22/21 07:23 Cardiac Enzymes 02/21/21 02/21/21 Range/Units 16:57 20:42 AST 32 (14-36) U/L Troponin I 0.013 (0.000-0.034) ng/mL Coagulation 02/21/21 Range/Units 20:42 PT 10.4 (9.0-12.0) sec APTT 22.2 (22.0-30.0) sec CBC 02/21/21 Range/Units 16:57 WBC 14.6 H (3.8-10.6) k/uL RBC 5.17 (3.80-5.40) m/uL Hgb 17.3 H (11.4-16.0) gm/dL Hct 51.1 H (34.0-46.0) % Plt Count 199 (150-450) k/uL Comprehensive Metabolic Panel 02/21/21 Range/Units 16:57 Sodium 131 L (137-145) mmol/L Potassium 3.0 L (3.5-5.1) mmol/L Chloride 84 L (98-107) mmol/L Carbon Dioxide 38 H (22-30) mmol/L BUN 25 H (7-17) mg/dL Creatinine 0.46 L (0.52-1.04) mg/dL Glucose 123 H (74-99) mg/dL Calcium 9.2 (8.4-10.2) mg/dL AST 32 (14-36) U/L ALT 29 (4-34) U/L Alkaline Phosphatase 121 (38-126) U/L Total Protein 6.4 (6.3-8.2) g/dL Albumin 3.8 (3.5-5.0) g/dL Current Medications Generic Name Dose Route Start Last Admin Trade Name Freq PRN Reason Stop Dose Admin Diltiazem HCl 125 mg/ Sodium 125 mls @ 5 mls/hr 02/21/21 23:00 02/22/21 00:04 Chloride IV 5 mg/hr .Q24H KRISTA 5 mls/hr Administration 5 MG/HR Sodium Chloride 1,000 mls @ 130 mls/hr 02/22/21 01:45 02/22/21 02:36 Saline 0.9% IV Not Given .[id number] [facility] Metoprolol Tartrate 37.5 mg 02/22/21 09:00 Metoprolol Tartrate 12.5 Mg Tab PO BID [facility] Naloxone HCl 0.2 mg 02/22/21 01:41 Naloxone 0.4 Mg/Ml 1 Ml Vial IV Q2M PRN Opioid Reversal Intake and Output 02/21/21 02/22/21 02/22/21 22:59 06:59 14:59 Other: Weight 48.534 kg 02/21/21 16:57 02/21/21 16:57
--- NOTE | 2021-02-22 12:45 | ECHOF ---
Referral Reason:afib MEASUREMENTS -------- HEIGHT: 162.6 cm WEIGHT: 47.2 kg BP: RVIDd: 3.6 cm (< 3.3) IVSd: 0.8 cm (0.6 - 1.1) LVIDd: 3.3 cm (3.9 - 5.3) LVPWd: 1.5 cm (0.6 - 1.1) IVSs: 1.1 cm LVIDs: 2.8 cm LVPWs: 1.4 cm LA Diam: 5.3 cm (2.7 - 3.8) LAESV Index (A-L): 66.70 ml/m Ao Diam: 2.8 cm (2.0 - 3.7) AV Cusp: 1.2 cm (1.5 - 2.6) LA Diam: 5.4 cm (2.7 - 3.8) MV EXCURSION: 18.395 mm (> 18.000) MV EF SLOPE: 82 mm/s (70 - 150) EPSS: 0.2 cm RAP: 20.00 mmHg RVSP: 60.81 mmHg FINDINGS -------- Atrial fibrillation. This was a technically good study. LV size, wall thickness and systolic function are normal, with an EF greater than 55%. The left fabi tricular size is normal. The right ventricle is normal in size. LA is severely dilated >40 ml/m2 The right atrial size is normal. There is mild aortic valve sclerosis. There is no evidence of aortic regurgitation. Mild mitral annular calcification present. Moderate mitral regurgitation is present. Moderate to severe tricuspid regurgitation present. There is moderate pulmonary hypertension. The right ventricular systolic pressure, as measured by Doppler, is 60.81mmHg. Trace/mild (physiologic) pulmonic regurgitation. There is no pericardial effusion. CONCLUSIONS -------- 1. LV size, wall thickness and systolic function are normal, with an EF greater than 55%. 2. The left ventricular size is normal. 3. The right ventricle is normal in size. 4. LA is severely dilated >40 ml/m2 5. The right atrial size is normal. 6. There is mild aortic valve sclerosis. 7. Mild mitral annular calcification present. 8. Moderate mitral regurgitation is present. 9. Moderate to severe tricuspid regurgitation present. 10. There is moderate pulmonary hypertension. 11. The right ventricular systolic pressure, as measured by Doppler, is 60.81mmHg. 12. Trace/mild (physiologic) pulmonic regurgitation. 13. There is no pericardial effusion. HEAT TREATING BLUER: Tiffany Goldstein RDCS
--- NOTE | 2021-02-22 14:53 | P.GSCN ---
History of Present Illness Consult date: 02/22/21 History of present illness: CHIEF COMPLAINT: Black stool and vomiting dark material HISTORY OF PRESENT ILLNESS: This is a 89-year-old female with a known history of atrial fibrillation and anticoagulated with the Eliquis. She presents to the hospital with 3-4 days of vomiting of dark material and a black stool on Sunday. She denies any abdominal pain. Her last EGD was about 15 years ago and patient reports it is negative. She doesn't recall ever having a colonoscopy. Hemoglobin on admission was 17.3. Repeat hemoglobin 13.6 and stool was positive for occult blood. Surgical service consulted for GI bleed. Patient denies any NSAID use. PAST MEDICAL HISTORY: Atrial fibrillation anticoagulated with Eliquis, hypertension, myocardial infarction PAST SURGICAL HISTORY: None MEDICATIONS: See list. ALLERGIES: See list. SOCIAL HISTORY: No illicit drug use. Former smoker REVIEW OF SYSTEMS: CONSTITUTIONAL: Denies fever or chills. HEENT: Denies blurred vision, vision changes, or eye pain. Denies hemoptysis CARDIOVASCULAR: Denies chest pain or pressure. RESPIRATORY: No shortness of breath. GASTROINTESTINAL: See HPI for pertinent findings HEMATOLOGIC: Denies bleeding disorders. GENITOURINARY: Denies any blood in urine or increased urinary frequency. SKIN: Denies pruitis. Denies rash. PHYSICAL EXAM: VITAL SIGNS: Reviewed GENERAL: Well-developed in no acute distress. HEENT: No sclera icterus. Extraocular movements grossly intact. Moist buccal mucosa. Head is atraumatic, normocephalic. No nasal drainage. ABDOMEN: Soft. Nondistended. Nontender NEUROLOGIC: Alert and oriented. Cranial nerves II through XII grossly intact. LABORATORY DATA: WBC is 14.6 down to 8.81 hemoglobin 17.3 down to 13.6 platelets 164 INR 1.0 sodium 133 potassium 3.0 creatinine 0.4 to magnesium 2.2 Fecal occult blood positive Urinalysis negative for infection COVID-19 not detected IMAGING: Chest x-ray no active cardiopulmonary disease. Large hiatal hernia Echo with an EF greater than 55% moderate mitral regurgitation, moderate to severe tricuspid regurgitation, moderate pulmonary hypertension ASSESSMENT: 1. Acute GI bleed with vomiting dark material 3 days and black stool 1 2. Hypokalemia PLAN: -Patient scheduled for EGD and colonoscopy on , 02/24/[address] pulido -Patient to have full liquid diet today and start clear liquids tomorrow -Patient to start GoLYTELY prep tomorrow -Hold Eliquis -Continue to replace potassium Thank you for this consultation Physician [facility] Coordinator note has been reviewed by physician. Signing provider agrees with the documented findings, assessment, and plan of care. Past Medical History Past Medical History: Atrial Fibrillation, Hypertension, Myocardial Infarction ([place]) Past Surgical History: No Surgical Hx Reported Smoking Status: Former smoker Past Alcohol Use History: None Reported Past Drug Use History: None Reported - Past Family History Mother Sister(s) Family Medical History: No Reported History (Not applicable due to patient's advanced age) Medications and Allergies Home Medications Medication Instructions Recorded Confirmed Type Apixaban [Eliquis] 2.5 mg PO BID 02/21/21 02/21/21 History Aspirin EC [Ecotrin Low Dose] 81 mg PO DAILY 02/21/21 02/21/21 History Metoprolol Tartrate [Lopressor] 37.5 mg PO BID 02/21/21 02/21/21 History Ondansetron HCl [Zofran] 4 mg PO Q12H PRN 02/21/21 02/21/21 History Vit C/E/Zn/Coppr/Lutein/Zeaxan 1 cap PO BID 02/21/21 02/21/21 History [Preservision Areds 2 Softgel] Allergies Allergy/AdvReac Type Severity Reaction Status Date / Time No Known Allergies Allergy Verified 02/21/21 22:50 Surgical - Exam Vital Signs Temp Pulse Resp BP Pulse Ox 98.2 F 101 H 18 147/94 98 02/21/21 16:20 02/21/21 16:20 02/21/21 16:20 02/21/21 16:20 02/21/21 16:20 Results - Labs 02/22/21 07:23 02/22/21 07:23 Abnormal Lab Results - Last 24 Hours (Table) 02/21/21 02/21/21 02/21/21 Range/Units 16:57 16:57 18:32 WBC 14.6 H (3.8-10.6) k/uL Hgb 17.3 H (11.4-16.0) gm/dL Hct 51.1 H (34.0-46.0) % MCH (27.0-32.0) pg MPV (9.5-12.2) fL Neutrophils # 11.2 H (1.3-7.7) k/uL Sodium 131 L (137-145) mmol/L Potassium 3.0 L (3.5-5.1) mmol/L Chloride 84 L (98-107) mmol/L Carbon Dioxide 38 H (22-30) mmol/L BUN 25 H (7-17) mg/dL Creatinine 0.46 L (0.52-1.04) mg/dL Glucose 123 H (74-99) mg/dL Calcium (8.4-10.2) mg/dL Total Bilirubin 1.4 H (0.2-1.3) mg/dL Total Protein (6.3-8.2) g/dL Albumin (3.5-5.0) g/dL Urine Protein 1+ H (Negative) Urine Glucose (UA) Trace H (Negative) Urine Bacteria Rare H (None) /hpf Hyaline Casts 6 H (0-2) /lpf Urine Mucus Many H (None) /hpf Stool Occult Blood (Negative) 02/21/21 02/22/21 02/22/21 Range/Units 22:48 07:23 07:23 WBC (3.8-10.6) k/uL Hgb (11.4-16.0) gm/dL Hct (34.0-46.0) % MCH 32.4 H (27.0-32.0) pg MPV 13.7 H (9.5-12.2) fL Neutrophils # (1.3-7.7) k/uL Sodium 133 L (137-145) mmol/L Potassium 3.0 L (3.5-5.1) mmol/L Chloride 92 L (98-107) mmol/L Carbon Dioxide 37 H (22-30) mmol/L BUN (7-17) mg/dL Creatinine 0.42 L (0.52-1.04) mg/dL Glucose (74-99) mg/dL Calcium 8.1 L (8.4-10.2) mg/dL Total Bilirubin 1.5 H (0.2-1.3) mg/dL Total Protein 4.9 L (6.3-8.2) g/dL Albumin 2.7 L (3.5-5.0) g/dL Urine Protein (Negative) Urine Glucose (UA) (Negative) Urine Bacteria (None) /hpf Hyaline Casts (0-2) /lpf Urine Mucus (None) /hpf Stool Occult Blood Positive H (Negative) Diabetes panel 02/21/21 02/22/21 Range/Units 16:57 07:23 Sodium 131 L 133 L (137-145) mmol/L Potassium 3.0 L 3.0 L (3.5-5.1) mmol/L Chloride 84 L 92 L (98-107) mmol/L Carbon Dioxide 38 H 37 H (22-30) mmol/L BUN 25 H 15 (7-17) mg/dL Creatinine 0.46 L 0.42 L (0.52-1.04) mg/dL Glucose 123 H 96 (74-99) mg/dL Calcium 9.2 8.1 L (8.4-10.2) mg/dL AST 32 24 (14-36) U/L ALT 29 21 (4-34) U/L Alkaline Phosphatase 121 75 (38-126) U/L Total Protein 6.4 4.9 L (6.3-8.2) g/dL Albumin 3.8 2.7 L (3.5-5.0) g/dL Calcium panel 02/21/21 02/22/21 Range/Units 16:57 07:23 Calcium 9.2 8.1 L (8.4-10.2) mg/dL Albumin 3.8 2.7 L (3.5-5.0) g/dL Pituitary panel 02/21/21 02/22/21 Range/Units 16:57 07:23 Sodium 131 L 133 L (137-145) mmol/L Potassium 3.0 L 3.0 L (3.5-5.1) mmol/L Chloride 84 L 92 L (98-107) mmol/L Carbon Dioxide 38 H 37 H (22-30) mmol/L BUN 25 H 15 (7-17) mg/dL Creatinine 0.46 L 0.42 L (0.52-1.04) mg/dL Glucose 123 H 96 (74-99) mg/dL Calcium 9.2 8.1 L (8.4-10.2) mg/dL Adrenal panel 02/21/21 02/22/21 Range/Units 16:57 07:23 Sodium 131 L 133 L (137-145) mmol/L Potassium 3.0 L 3.0 L (3.5-5.1) mmol/L Chloride 84 L 92 L (98-107) mmol/L Carbon Dioxide 38 H 37 H (22-30) mmol/L BUN 25 H 15 (7-17) mg/dL Creatinine 0.46 L 0.42 L (0.52-1.04) mg/dL Glucose 123 H 96 (74-99) mg/dL Calcium 9.2 8.1 L (8.4-10.2) mg/dL Total Bilirubin 1.4 H 1.5 H (0.2-1.3) mg/dL AST 32 24 (14-36) U/L ALT 29 21 (4-34) U/L Alkaline Phosphatase 121 75 (38-126) U/L Total Protein 6.4 4.9 L (6.3-8.2) g/dL Albumin 3.8 2.7 L (3.5-5.0) g/dL
[2021-02-22] MEDS: POTASSIUM CHLORIDE 10 MEQ in WATER FOR INJECTION 1 100ML.BAG IVPB SCH ×4 (15:44→22:28)
[2021-02-22] MEDS: METOPROLOL TARTRATE 50 MG TAB PO SCH (19:05)
[2021-02-22] MEDS: PANTOPRAZOLE 40 MG/10 ML VIAL IVP SCH (22:28)
[2021-02-23] MEDS: SODIUM CHLORIDE 0.9% 1,000 ML IV SCH ×4 (02:49→20:02)
[2021-02-23] MEDS: METOPROLOL TARTRATE 25 MG TAB PO SCH ×3 (05:19→20:01)
[2021-02-23 07:37] LABS: African American GFR (CKD) >90 (>60 ml/min/1.73 sqM); Anion Gap 4 mmol/L; Blood Urea Nitrogen 6 mg/dL (7-17); Calcium 8.7 mg/dL (8.4-10.2); Carbon Dioxide 33 mmol/L (22-30); Chloride 99 mmol/L (98-107); Glucose 92 mg/dL (74-99); Non-African American GFR(CKD) >90 (>60 ml/min/1.73 sqM); Potassium 3.9 mmol/L (3.5-5.1); Sodium 136 mmol/L (137-145)
[2021-02-23] MEDS ORDERED: PEG 3350-NA SULF,BICARB,CL/KCL 4,000 ML BOTTLE PO ONE (08:00)
[2021-02-23] MEDS: PANTOPRAZOLE 40 MG/10 ML VIAL IVP SCH ×2 (09:27→20:00)
[2021-02-23] MEDS: METOPROLOL TARTRATE 50 MG TAB PO SCH (09:38)
[2021-02-23 09:57] LABS: Basophils # (A) 0.1 k/uL (0-0.2); Basophils % (A) 1 %; Eosinophils # (A) 0.2 k/uL (0-0.7); Eosinophils % (A) 2 %; HCT 45.8 % (34.0-46.0); HGB 14.9 gm/dL (11.4-16.0); Lymphocytes % (A) 21 %; MCH 33.5 pg (25.0-35.0); MCHC 32.5 g/dL (31.0-37.0); MCV 102.9 fL (80.0-100.0); Macrocytosis Slight; Mean Platelet Volume 11.4; Monocytes # (A) 0.6 k/uL (0-1.0); Monocytes % (A) 6 %; Neutrophils # (A) 6.8 k/uL (1.3-7.7); Neutrophils % (A) 69 %; Platelet Count 178 k/uL (150-450); RBC 4.45 m/uL (3.80-5.40); WBC 9.9 k/uL (3.8-10.6)
--- NOTE | 2021-02-23 12:30 | P.PN ---
Subjective HISTORY OF PRESENTING ILLNESS This is a pleasant 89-year-old female past medical history significant for atrial fibrillation and hypertension. 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 She states she was diagnosed by her primary care physician approximately 2 years ago with atrial fibrillation. She is not sure if she isn't at all that time or if it comes and goes. We have been asked to see in consultation for A. fib with RVR. She presented to the hospital with a three- day history of nausea, vomiting dark emesis and one episode of black stool. On arrival to the emergency department she was found to be in A. fib with rapid ventricular rates. She has been initiated on a Cardizem infusion. The patient is seen and examined in the emergency department with her daughter at the bedside. She denies any symptoms related to A. fib. She has no chest pain, shortness of breath, dizziness or palpitations. Overall she feels tired. She did test positive for occult blood in the stool. She is awaiting a surgical consultation as well. Eliquis has been placed on hold. Chest x-ray is negative for an acute cardiopulmonary process with evidence of a large hiatal hernia. Laboratory data reviewed, WBC 14.6, hemoglobin 17.3, platelets 199, sodium 131, potassium 3, creatinine 0.46, magnesium 2.2 and troponin negative 1 Previous e chocardiogram obtained in 2019 revealed mildly impaired LV systolic function with global LV hypokinesia with ejection fraction 45-50%, severe mitral regurgitation, mild tricuspid regurgitation, mild pulmonary hypertension and of note she was in A. fib at that time. Current daily cardiac medications include Eliquis 2.5 mg twice a day, aspirin 81 mg daily and Lopressor 37.5 mg twice a day. 02/23/2021 Pt seen and examined sitting up in no acute distress. She continues to have variable ventricular rates. Currently blood pressure 140/90 heart rate 114 afebrile and maintaining oxygen saturation on room air. Laboratory data reviewed, WBC 9.9, hgb 14.9, plt 178, sodium 136, potassium 3.9, creatinine 0.35. Echocardiogram obtained reveals preserved LV systolic function with ejection fraction greater than 55%, moderate mitral regurgitation, moderate to severe tricuspid regurgitation and moderate pulmonary hypertension with RVSP of 60 mmHg. PHYSICAL EXAMINATION CONSTITUTIONAL: No apparent distress. HEENT: Head is normocephalic. Pupils are equal, round. Sclerae anicteric. Mucous membranes of the mouth are moist. No JVD. No carotid bruit. CHEST EXAMINATION: Lungs are clear to auscultation. No chest wall tenderness is noted on palpation or with deep breathing. HEART EXAMINATION: Irregular rate and rhythm. S1, S2 heard. Systolic ejection murmur at the left sternal border and apex, no gallops or rub. EXTREMITIES: 2+ peripheral pulses, no lower extremity edema and no calf tenderness. ASSESSMENT Chronic persistent atrial fibrillation with rapid ventricular rate Acute GI bleed Leukocytosis Hypokalemia Hypertension Dehydration PLAN Hold eliquis for scope tomorrow. Resume when appropriate per surgery. Increase lopressor to 75 mg BID today for high heart rates. Nurse Practitioner note has been reviewed, I agree with a documented findings and plan of care. Patient was seen and examined. Objective - Vital Signs Vital signs: Vital Signs Temp 98.1 F 02/23/21 07:00 Pulse 114 H 02/23/21 07:00 Resp 18 02/23/21 08:00 BP 149/90 02/23/21 07:00 Pulse Ox 94 L 02/23/21 07:00 Intake & Output 02/22/21 02/23/21 02/23/21 18:59 06:59 18:59 Intake Total 120 Output Total 1200 Balance 120 -1200 Intake: Oral 120 Output: Urine 1200 Other: Voiding Method Incontinent External Catheter - Labs CBC & Chem 7: 02/23/21 06:13 02/23/21 06:13 Labs: Abnormal Lab Results - Last 24 Hours (Table) 02/22/21 02/23/21 02/23/21 Range/Units 07:23 06:13 06:13 MCV 102.9 H (80.0-100.0) fL MCH 32.4 H (27.0-32.0) pg MPV 13.7 H (9.5-12.2) fL Sodium 136 L (137-145) mmol/L Carbon Dioxide 33 H (22-30) mmol/L BUN 6 L (7-17) mg/dL Creatinine 0.35 L (0.52-1.04) mg/dL Microbiology - Last 24 Hours (Table) 02/21/21 20:42 Blood Culture - Preliminary Blood No Growth after 24 hours 02/21/21 20:42 Blood Culture - Preliminary Blood No Growth after 24 hours
--- NOTE | 2021-02-23 12:40 | P.PN ---
Subjective Progress Note Date: 02/23/21 Patient with some lightheadedness, dizziness today. Labs demonstrated stable white blood cell count, hemoglobin. Platelet for EGD/colonoscopy tomorrow. Heart rates are still uncontrolled, increasing beta anthony. Objective - Vital Signs Vital signs: Vital Signs Temp 98.1 F 02/23/21 07:00 Pulse 114 H 02/23/21 07:00 Resp 18 02/23/21 08:00 BP 149/90 02/23/21 07:00 Pulse Ox 94 L 02/23/21 07:00 Intake & Output 02/22/21 02/23/21 02/23/21 18:59 06:59 18:59 Intake Total 120 Output Total 1200 Balance 120 -1200 Intake: Oral 120 Output: Urine 1200 Other: Voiding Method Incontinent External Catheter - Exam Gen: awake, alert HEENT: normocephalic, atraumatic, good hearing acuity, moist mucous membranes Resp: good air exchange, breathing comfortably with no accessory muscle use, clear to auscultation bilaterally CVS: good distal perfusion x 4, irregular rhythm, tachycardic, no murmurs GI: soft, NTTP, ND : no SPT, no CVAT, samuel catheter not present MSK: no pitting edema, no clubbing Neuro: non-focal, moving all extremities Psych: cooperative, euthymic mood - Labs CBC & Chem 7: 02/23/21 06:13 02/23/21 06:13 Labs: Abnormal Lab Results - Last 24 Hours (Table) 02/23/21 02/23/21 Range/Units 06:13 06:13 MCV 102.9 H (80.0-100.0) fL Sodium 136 L (137-145) mmol/L Carbon Dioxide 33 H (22-30) mmol/L BUN 6 L (7-17) mg/dL Creatinine 0.35 L (0.52-1.04) mg/dL Microbiology - Last 24 Hours (Table) 02/21/21 20:42 Blood Culture - Preliminary Blood No Growth after 24 hours 02/21/21 20:42 Blood Culture - Preliminary Blood No Growth after 24 hours Assessment and Plan Assessment: Atrial fibrillation with RVR -Cardizem infusion was discontinued, metoprolol dose increased to 75 mg twice a day -Cardiology following -Continue to hold Eliquis secondary to patient's reports of black tarry stools and emesis. -Cardiac monitoring Large hiatal hernia Rule out GI bleed secondary to reports of black tarry stools and emesis -Hemoglobin stable, trend q6h, then daily -Continue to hold Eliquis -Gen. Surgery consulted, Dr. Brar. EGD/[place] 02/24 Hypochloremia and hyponatremia, likely due to poor oral intake and nausea vomiting -Continue with gentle IV hydration and monitor for now Hypokalemia -Replace and monitor Non-anion gap Metabolic alkalosis -Likely due to vomiting -Continue with IV fluids and monitor The patient is admitted with an anticipated less than 2 midnight stay for evaluation of afib, rvr CODE STATUS: Full Code DVT prophylaxis: Mechanical Anticipated discharge date Clinical course to determine Anticipated discharge place: Home
[2021-02-23 14:38] VITALS: BMI 18.3
--- NOTE | 2021-02-23 14:51 | P.PN ---
Subjective Progress Note Date: 02/23/21 CHIEF COMPLAINT: Black stool and vomiting dark material HISTORY OF PRESENT ILLNESS: Patient denies any abdominal pain. She denies any black stools or any nausea or vomiting. Afebrile. WBC 9.9 hemoglobin 14.9 platelets 178 sodium 136 potassium 3.9 PHYSICAL EXAM: VITAL SIGNS: Reviewed. GENERAL: Well-developed in no acute distress. HEENT: No sclera icterus. Extraocular movements grossly intact. Moist buccal mucosa. Head is atraumatic, normocephalic. ABDOMEN: Soft. Nondistended. Nontender. NEUROLOGIC: Alert and oriented. Cranial nerves II through XII grossly intact. ASSESSMENT: 1. Acute GI bleed with vomiting dark material 3 days and black stool 1 2. Hypokalemia improved PLAN: -Patient scheduled for EGD and colonoscopy tomorrow, 02/24/[address] pulido -Nothing by mouth after midnight -Patient received GoLYTELY prep today -Hold [facility] Physician Neonatal Doctor note has been reviewed by physician. Signing provider agrees with the documented findings, assessment, and plan of care. Objective - Vital Signs Vital signs: Vital Signs Temp 98.1 F 02/23/21 07:00 Pulse 114 H 02/23/21 13:30 Resp 18 02/23/21 08:00 BP 149/90 02/23/21 07:00 Pulse Ox 94 L 02/23/21 07:00 Intake & Output 02/22/21 02/23/21 02/23/21 18:59 06:59 18:59 Intake Total 120 Output Total 1200 Balance 120 -1200 Weight 48.534 kg Intake: Oral 120 Output: Urine 1200 Other: Voiding Method Incontinent External Catheter - Labs CBC & Chem 7: 02/23/21 06:13 02/23/21 06:13 Labs: Abnormal Lab Results - Last 24 Hours (Table) 02/23/21 02/23/21 Range/Units 06:13 06:13 MCV 102.9 H (80.0-100.0) fL Sodium 136 L (137-145) mmol/L Carbon Dioxide 33 H (22-30) mmol/L BUN 6 L (7-17) mg/dL Creatinine 0.35 L (0.52-1.04) mg/dL Microbiology - Last 24 Hours (Table) 02/21/21 20:42 Blood Culture - Preliminary Blood No Growth after 24 hours 02/21/21 20:42 Blood Culture - Preliminary Blood No Growth after 24 hours
[2021-02-23 15:50] LABS: Basophils % (A) 0 %; Eosinophils # (A) 0.2 k/uL (0-0.7); Eosinophils % (A) 2 %; HCT 45.2 % (34.0-46.0); HGB 14.8 gm/dL (11.4-16.0); Lymphocytes # (A) 1.7 k/uL (1.0-4.8); Lymphocytes % (A) 19 %; MCH 33.2 pg (25.0-35.0); MCHC 32.7 g/dL (31.0-37.0); MCV 101.6 fL (80.0-100.0); Mean Platelet Volume 10.7; Monocytes # (A) 0.6 k/uL (0-1.0); Monocytes % (A) 6 %; Neutrophils # (A) 6.4 k/uL (1.3-7.7); Neutrophils % (A) 71 %; Platelet Count 183 k/uL (150-450); RBC 4.45 m/uL (3.80-5.40); WBC 9.1 k/uL (3.8-10.6)
[2021-02-23] MEDS: LACTATED RINGERS 1,000 ML IV SCH (18:26)
[2021-02-23 21:12] LABS: Basophils # (A) 0.1 k/uL (0-0.2); Basophils % (A) 1 %; Eosinophils # (A) 0.2 k/uL (0-0.7); Eosinophils % (A) 2 %; HCT 45.7 % (34.0-46.0); Lymphocytes % (A) 21 %; MCH 33.2 pg (25.0-35.0); MCHC 32.9 g/dL (31.0-37.0); MCV 100.9 fL (80.0-100.0); Mean Platelet Volume 10.7; Monocytes # (A) 0.7 k/uL (0-1.0); Monocytes % (A) 8 %; Neutrophils # (A) 6.3 k/uL (1.3-7.7); Neutrophils % (A) 67 %; Platelet Count 194 k/uL (150-450); RBC 4.52 m/uL (3.80-5.40); RDW 12.9 % (11.5-15.5); WBC 9.4 k/uL (3.8-10.6)
[2021-02-24 05:39] LABS: HCT 44.4 % (34.0-46.0); MCH 34.1 pg (25.0-35.0); MCHC 33.9 g/dL (31.0-37.0); MCV 100.4 fL (80.0-100.0); Mean Platelet Volume 10.7; Platelet Count 197 k/uL (150-450); RBC 4.42 m/uL (3.80-5.40); WBC 8.5 k/uL (3.8-10.6)
[2021-02-24 06:05] LABS: African American GFR (CKD) >90 (>60 ml/min/1.73 sqM); Anion Gap 6 mmol/L; Blood Urea Nitrogen 4 mg/dL (7-17); Calcium 8.5 mg/dL (8.4-10.2); Carbon Dioxide 35 mmol/L (22-30); Chloride 95 mmol/L (98-107); Glucose 89 mg/dL (74-99); Non-African American GFR(CKD) >90 (>60 ml/min/1.73 sqM); Potassium 3.1 mmol/L (3.5-5.1); Sodium 136 mmol/L (137-145)
[2021-02-24] MEDS ORDERED: Potassium Replacement Protocol 1 EACH MISC MISCELLANE PRN (07:02)
[2021-02-24] MEDS: POTASSIUM CHLORIDE ER 20 MEQ TAB.ER PO SCH ×2 (09:00→14:12)
[2021-02-24] MEDS: PANTOPRAZOLE 40 MG/10 ML VIAL IVP SCH ×2 (09:00→19:42)
[2021-02-24] MEDS: METOPROLOL TARTRATE 25 MG TAB PO SCH ×3 (09:00→19:42)
[2021-02-24] MEDS: SODIUM CHLORIDE 0.9% 1,000 ML IV SCH ×3 (09:00→23:35)
[2021-02-24] MEDS ORDERED: PROPOFOL 10 MG/ML 20 ML VIAL IV ONE (11:48)
[2021-02-24] MEDS ORDERED: LIDOCAINE 1% INJ 10MG/ML (20 ML MDV) ONE (11:48)
[2021-02-24] MEDS ORDERED: PHENYLEPHRINE-0.9% NACL SYG 1,000 MCG/10 ML SYRINGE ONE (11:48)
[2021-02-24] MEDS ORDERED: IV FLUID CONTINUATION 600 ML IV ONE (11:55)
--- NOTE | 2021-02-24 12:14 | P.OP ---
Date of Procedure: 02/24/21 Preoperative Diagnosis: GI bleed Postoperative Diagnosis: Mild antral gastritis Large hiatal hernia Erosive esophagitis Poor colon prep Limited view of the sigmoid colon and rectum without evidence of bleeding Procedure(s) Performed: EGD Colonoscopy Anesthesia: MAC Surgeon: Bertram Brar Pathology: other (Antrum, esophagus) Condition: stable Disposition: PACU Description of Procedure: The patient's placed on the endoscopy table in the lateral position. She received IV sedation. The Scope placed oropharynx passed in the esophagus and stomach. Scope was placed through the pylorus. The first and second portion of the duodenum appeared normal. Scope was then brought back the antrum this was mildly inflamed. A biopsies performed. The scope was then retroflexed and the remainder of the stomach. Normal. The patient had a large hiatal hernia. The prostate 30 the stomach appeared to be in the hiatal hernia. The GE junction was at 37 cm. The distal esophagus appeared to be inflamed. An evidence of erosive esophagitis. This was biopsied. The proximal esophagus appeared normal. Scope was withdrawn for patient. Next digital rectal exam was performed. There was a large amount liquid stool in the rectum. The flexible colonoscope was then placed anus and passed throughout the colon. Scope could not be passed beyond the sigmoid colon secondary to poor bowel prep. Scope was withdrawn. There is no evidence of bleeding in the colon. The view was very limited due to the poor prep. Scope was withdrawn for patient. Physical the patient's bleeding is due to esophagitis.
--- NOTE | 2021-02-24 13:22 | P.PN ---
Subjective HISTORY OF PRESENTING ILLNESS This is a pleasant 89-year-old female past medical history significant for atrial fibrillation and hypertension. 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 She states she was diagnosed by her primary care physician approximately 2 years ago with atrial fibrillation. She is not sure if she isn't at all that time or if it comes and goes. We have been asked to see in consultation for A. fib with RVR. She presented to the hospital with a three- day history of nausea, vomiting dark emesis and one episode of black stool. On arrival to the emergency department she was found to be in A. fib with rapid ventricular rates. She has been initiated on a Cardizem infusion. The patient is seen and examined in the emergency department with her daughter at the bedside. She denies any symptoms related to A. fib. She has no chest pain, shortness of breath, dizziness or palpitations. Overall she feels tired. She did test positive for occult blood in the stool. She is awaiting a surgical consultation as well. Eliquis has been placed on hold. Chest x-ray is negative for an acute cardiopulmonary process with evidence of a large hiatal hernia. Laboratory data reviewed, WBC 14.6, hemoglobin 17.3, platelets 199, sodium 131, potassium 3, creatinine 0.46, magnesium 2.2 and troponin negative 1 Previous e chocardiogram obtained in 2019 revealed mildly impaired LV systolic function with global LV hypokinesia with ejection fraction 45-50%, severe mitral regurgitation, mild tricuspid regurgitation, mild pulmonary hypertension and of note she was in A. fib at that time. Current daily cardiac medications include Eliquis 2.5 mg twice a day, aspirin 81 mg daily and Lopressor 37.5 mg twice a day. Patient underwent EGD colonoscopy today revealing mild antral gastritis, large hiatal hernia, erosive esophagitis and limited view of the sigmoid colon and rectum due to poor colon prep with no evidence of obvious overt bleeding. Blood pressure 111/68 heart rate 114 afebrile maintaining oxygen saturation on room air. Laboratory data reviewed, WBC 8.5, hemoglobin 15, platelets 197, sodium 13 6, potassium 3.1 and creatinine 0.4 PHYSICAL EXAMINATION CONSTITUTIONAL: No apparent distress. HEENT: Head is normocephalic. Pupils are equal, round. Sclerae anicteric. Mucous membranes of the mouth are moist. No JVD. No carotid bruit. CHEST EXAMINATION: Lungs are clear to auscultation. No chest wall tenderness is noted on palpation or with deep breathing. HEART EXAMINATION: Irregular rate and rhythm. S1, S2 heard. Systolic ejection murmur at the left sternal border and apex, no gallops or rub. EXTREMITIES: 2+ peripheral pulses, no lower extremity edema and no calf tenderness. ASSESSMENT Chronic persistent atrial fibrillation with rapid ventricular rate Acute GI bleed Leukocytosis Hypokalemia Hypertension Dehydration PLAN Hold eliquis and resume per surgery recommendations. Increase lopressor to 75 mg TID today for high heart rates. Continue to replace potassium per protocol. Nurse Practitioner note has been reviewed, I agree with a documented findings and plan of care. Patient was seen and examined. Objective - Vital Signs Vital signs: Vital Signs Temp 98.3 F 02/24/21 07:00 Pulse 114 H 02/24/21 08:00 Resp 16 02/24/21 08:00 BP 111/68 02/24/21 07:00 Pulse Ox 97 02/24/21 07:00 Intake & Output 02/23/21 02/24/21 02/24/21 18:59 06:59 18:59 Output Total 3 1000 3 Balance -3 -1000 -3 Weight 48.534 kg Output: Stool 3 3 Urine/Stool Mix 1000 Other: Voiding Method Incontinent Incontinent # Voids 3 7 1 # Bowel Movements 7 - Labs CBC & Chem 7: 02/24/21 04:40 02/24/21 04:40 Labs: Abnormal Lab Results - Last 24 Hours (Table) 02/23/21 02/23/21 02/24/21 Range/Units 15:32 20:53 04:40 MCV 101.6 H 100.9 H 100.4 H (80.0-100.0) fL Sodium (137-145) mmol/L Potassium (3.5-5.1) mmol/L Chloride (98-107) mmol/L Carbon Dioxide (22-30) mmol/L BUN (7-17) mg/dL Creatinine (0.52-1.04) mg/dL 02/24/21 Range/Units 04:40 MCV (80.0-100.0) fL Sodium 136 L (137-145) mmol/L Potassium 3.1 L (3.5-5.1) mmol/L Chloride 95 L (98-107) mmol/L Carbon Dioxide 35 H (22-30) mmol/L BUN 4 L (7-17) mg/dL Creatinine 0.40 L (0.52-1.04) mg/dL Microbiology - Last 24 Hours (Table) 02/21/21 20:42 Blood Culture - Preliminary Blood No Growth after 48 hours 02/21/21 20:42 Blood Culture - Preliminary Blood No Growth after 48 hours
--- NOTE | 2021-02-24 13:40 | P.PN ---
Subjective Progress Note Date: 02/24/21 Patient has no new complaints today. Pending colonoscopy. Heart rates are still high, metoprolol was increased by cardiology team. Objective - Vital Signs Vital signs: Vital Signs Temp 98.3 F 02/24/21 07:00 Pulse 114 H 02/24/21 08:00 Resp 16 02/24/21 08:00 BP 111/68 02/24/21 07:00 Pulse Ox 97 02/24/21 07:00 Intake & Output 02/23/21 02/24/21 02/24/21 18:59 06:59 18:59 Output Total 3 1000 3 Balance -3 -1000 -3 Weight 48.534 kg Output: Stool 3 3 Urine/Stool Mix 1000 Other: Voiding Method Incontinent Incontinent # Voids 3 7 1 # Bowel Movements 7 - Exam Gen: awake, alert HEENT: normocephalic, atraumatic, good hearing acuity, moist mucous membranes Resp: good air exchange, breathing comfortably with no accessory muscle use, clear to auscultation bilaterally CVS: good distal perfusion x 4, irregular rhythm, tachycardic, no murmurs GI: soft, NTTP, ND : no SPT, no CVAT, samuel catheter not present MSK: no pitting edema, no clubbing Neuro: non-focal, moving all extremities Psych: cooperative, euthymic mood - Labs CBC & Chem 7: 02/24/21 04:40 02/24/21 04:40 Labs: Abnormal Lab Results - Last 24 Hours (Table) 02/23/21 02/23/21 02/24/21 Range/Units 15:32 20:53 04:40 MCV 101.6 H 100.9 H 100.4 H (80.0-100.0) fL Sodium (137-145) mmol/L Potassium (3.5-5.1) mmol/L Chloride (98-107) mmol/L Carbon Dioxide (22-30) mmol/L BUN (7-17) mg/dL Creatinine (0.52-1.04) mg/dL 02/24/21 Range/Units 04:40 MCV (80.0-100.0) fL Sodium 136 L (137-145) mmol/L Potassium 3.1 L (3.5-5.1) mmol/L Chloride 95 L (98-107) mmol/L Carbon Dioxide 35 H (22-30) mmol/L BUN 4 L (7-17) mg/dL Creatinine 0.40 L (0.52-1.04) mg/dL Microbiology - Last 24 Hours (Table) 02/21/21 20:42 Blood Culture - Preliminary Blood No Growth after 48 hours 02/21/21 20:42 Blood Culture - Preliminary Blood No Growth after 48 hours Assessment and Plan Assessment: Atrial fibrillation with RVR -Cardizem infusion was discontinued, metoprolol dose increased to 75 mg 3 times a day -Cardiology following -Continue to hold Eliquis secondary to patient's reports of black tarry stools and emesis. -Cardiac monitoring Large hiatal hernia Rule out GI bleed secondary to reports of black tarry stools and emesis -Hemoglobin stable, trend q6h, then daily -Continue to hold Eliquis -Gen. Surgery consulted, Dr. Brar. EGD/[place] 02/24 Hypochloremia and hyponatremia, likely due to poor oral intake and nausea vo miting -Continue with gentle IV hydration and monitor for now Hypokalemia -Replace and monitor Non-anion gap Metabolic alkalosis -Likely due to vomiting -Continue with IV fluids and monitor The patient is admitted with an anticipated less than 2 midnight stay for evaluation of afib, rvr CODE STATUS: Full Code DVT prophylaxis: Mechanical Anticipated discharge date Clinical course to determine Anticipated discharge place: Home
[2021-02-24] MEDS: LACTATED RINGERS 1,000 ML IV SCH (19:46)
[2021-02-25 05:58] LABS: African American GFR (CKD) >90 (>60 ml/min/1.73 sqM); Anion Gap 1 mmol/L; Blood Urea Nitrogen 11 mg/dL (7-17); Calcium 7.7 mg/dL (8.4-10.2); Carbon Dioxide 32 mmol/L (22-30); Chloride 101 mmol/L (98-107); Glucose 97 mg/dL (74-99); Non-African American GFR(CKD) 87 (>60 ml/min/1.73 sqM); Potassium 3.7 mmol/L (3.5-5.1); Sodium 134 mmol/L (137-145)
[2021-02-25] MEDS: METOPROLOL TARTRATE 25 MG TAB PO SCH (07:57)
[2021-02-25] MEDS: PANTOPRAZOLE 40 MG/10 ML VIAL IVP SCH (07:58)
[2021-02-25] MEDS: SODIUM CHLORIDE 0.9% 1,000 ML IV SCH ×2 (08:02→15:25)
--- NOTE | 2021-02-25 09:39 | P.PN ---
Subjective HISTORY OF PRESENTING ILLNESS This is a pleasant 89-year-old female past medical history significant for atrial fibrillation and hypertension. 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 She states she was diagnosed by her primary care physician approximately 2 years ago with atrial fibrillation. She is not sure if she isn't at all that time or if it comes and goes. We have been asked to see in consultation for A. fib with RVR. She presented to the hospital with a three- day history of nausea, vomiting dark emesis and one episode of black stool. On arrival to the emergency department she was found to be in A. fib with rapid ventricular rates. She has been initiated on a Cardizem infusion. The patient is seen and examined in the emergency department with her daughter at the bedside. She denies any symptoms related to A. fib. She has no chest pain, shortness of breath, dizziness or palpitations. Overall she feels tired. She did test positive for occult blood in the stool. She is awaiting a surgical consultation as well. Eliquis has been placed on hold. Chest x-ray is negative for an acute cardiopulmonary process with evidence of a large hiatal hernia. Laboratory data reviewed, WBC 14.6, hemoglobin 17.3, platelets 199, sodium 131, potassium 3, creatinine 0.46, magnesium 2.2 and troponin negative 1 Previous e chocardiogram obtained in 2019 revealed mildly impaired LV systolic function with global LV hypokinesia with ejection fraction 45-50%, severe mitral regurgitation, mild tricuspid regurgitation, mild pulmonary hypertension and of note she was in A. fib at that time. Current daily cardiac medications include Eliquis 2.5 mg twice a day, aspirin 81 mg daily and Lopressor 37.5 mg twice a day. 02/25/2021 Patient seen and examined sitting up having breakfast in no acute distress. She denies symptoms of chest pain, shortness of breath, nausea, vomiting or diarrhea. Blood pressure 132/80 heart rate 96 afebrile maintaining oxygen saturation on room air. PHYSICAL EXAMINATION CONSTITUTIONAL: No apparent distress. HEENT: Head is normocephalic. Pupils are equal, round. Sclerae anicteric. Mucous membranes of the mouth are moist. No JVD. No carotid bruit. CHEST EXAMINATION: Lungs are clear to auscultation. No chest wall tenderness is noted on palpation or with deep breathing. HEART EXAMINATION: Irregular rate and rhythm. S1, S2 heard. Systolic ejection murmur at the left sternal border and apex, no gallops or rub. EXTREMITIES: 2+ peripheral pulses, no lower extremity edema and no calf tende rness. ASSESSMENT Chronic persistent atrial fibrillation with rapid ventricular rate Acute GI bleed Leukocytosis Hypokalemia Hypertension Dehydration PLAN Resume Eliquis when okay per surgery. Follow-up with Dr. Avina upon discharge. Nurse Practitioner note has been reviewed, I agree with a documented findings and plan of care. Patient was seen and examined. Objective - Vital Signs Vital signs: Vital Signs Temp 98 F 02/25/21 02:00 Pulse 96 02/25/21 08:05 Resp 14 02/25/21 08:05 BP 132/80 02/25/21 08:05 Pulse Ox 96 02/25/21 08:05 Intake & Output 02/24/21 02/25/21 02/25/21 18:59 06:59 18:59 Intake Total 100 300 Output Total 6 Balance 94 300 Intake: Oral 100 300 Output: Stool 6 Other: Voiding Method Incontinent Incontinent Incontinent # Voids 1 2 - Labs CBC & Chem 7: 02/24/21 04:40 02/25/21 04:55 Labs: Abnormal Lab Results - Last 24 Hours (Table) 02/25/21 Range/Units 04:55 Sodium 134 L (137-145) mmol/L Carbon Dioxide 32 H (22-30) mmol/L Creatinine 0.49 L (0.52-1.04) mg/dL Calcium 7.7 L (8.4-10.2) mg/dL Microbiology - Last 24 Hours (Table) 02/21/21 20:42 Blood Culture - Preliminary Blood No Growth after 72 hours 02/21/21 20:42 Blood Culture - Preliminary Blood No Growth after 72 hours
--- NOTE | 2021-02-25 11:13 | P.PN ---
Progress Note - Text Progress Note Date: 02/25/21 Patient feels better. She shows no sign of GI bleed. Hemoglobin is stable at 15. On exam her vital signs are stable. Abdomen soft. No evidence of recurrent GI bleed. Patient may resume L Norberto
[2021-02-25 15:08] VITALS: BP 128/82; PULSE 95; RESP 16; TEMP 98.1
--- NOTE | 2021-02-25 15:31 | P.DS ---
Providers Date of admission: 02/22/21 12:55 Expected date of discharge: 02/25/21 Attending physician: Joni Xie MD Consults: 02/22/21 01:41 Consult Physician Stat Consulting Provider: Bertram Brar Consult Reason/Comments: Hemoccult + Do you want consulting provider notified?: Already Contacted 02/22/21 02:05 Consult Physician Urgent Consulting Provider: Azar Thomas Consult Reason/Comments: afib, rvr Do you want consulting provider notified?: Yes Primary care physician: Devin Villareal MD Hospital Course: Atrial fibrillation with RVR Large hiatal hernia Rule out GI bleed secondary to reports of black tarry stools and emesis Patient was admitted with melena and AFib with RVR. Patient was initially started on Cardizem infusion which was discontinued metoprolol was up titrated with cardiology. Her home blood thinner was held for EGD/colonoscopy. Patient's hemoglobin was trended and did not have any further drops. Melenic stools resolved. Patient underwent EGD which demonstrated esophagitis. Unfortunately, patient's colonoscopy did not have adequate prep, therefore she'll need a colonoscopy as an outpatient as well as GI follow-up for esophagitis; this was relayed to the patient as well as her daughter. She was discharged on Protonix twice a day. Eliquis was resumed on discharge. Regarding her heart rates, patient's metoprolol was increased from 37.5 twice a day to 75 mg 3 times a day with controlled rates. Patient had no further complaints of palpitations, dizziness, lightheadedness. I spent 32 minutes coordinating this complex discharge Assessment: Gen: awake, alert HEENT: normocephalic, atraumatic, good hearing acuity, moist mucous membranes Resp: good air exchange, breathing comfortably with no accessory muscle use, clear to auscultation bilaterally CVS: good distal perfusion x 4, irregular rhythm, tachycardic, no murmurs GI: soft, NTTP, ND : no SPT, no CVAT, samuel catheter not present MSK: no pitting edema, no clubbing Neuro: non-focal, moving all extremities Psych: cooperative, euthymic mood Patient Condition at Discharge: Good Plan - Discharge Summary New Discharge Prescriptions: New Metoprolol Tartrate [Lopressor] 75 mg PO TID #270 tab Pantoprazole [Protonix] 40 mg PO BID #60 tab Continue Ondansetron HCl [Zofran] 4 mg PO Q12H PRN PRN Reason: Nausea And Vomiting Vit C/E/Zn/Coppr/Lutein/Zeaxan [Preservision Areds 2 Softgel] 1 cap PO BID Aspirin EC [Ecotrin Low Dose] 81 mg PO DAILY Apixaban [Eliquis] 2.5 mg PO BID Discontinued Metoprolol Tartrate [Lopressor] 37.5 mg PO BID Discharge Medication List Apixaban [Eliquis] 2.5 mg PO BID 02/21/21 [History] Aspirin EC [Ecotrin Low Dose] 81 mg PO DAILY 02/21/21 [History] Ondansetron HCl [Zofran] 4 mg PO Q12H PRN 02/21/21 [History] Vit C/E/Zn/Coppr/Lutein/Zeaxan [Preservision Areds 2 Softgel] 1 cap PO BID 02/21/21 [History] Metoprolol Tartrate [Lopressor] 75 mg PO TID #270 tab 02/25/21 [Rx] Pantoprazole [Protonix] 40 mg PO BID #60 tab 02/25/21 [Rx] Follow up Appointment(s)/Referral(s): Devin Villareal MD [Primary Care Provider] - 1-2 days Ashwin Avina DO [STAFF PHYSICIAN] - 2 Weeks (Office will call with appoinment date and time.) Discharge Disposition: HOME SELF-CARE
== END 2021-02-25 16:12 | disposition home or self-care (01) | DRG 308 ==
LOC: EC 14:12 → 6NMEDSUR 02-22 01:37 → OBSVTOIN 02-22 12:55 → 6NMEDSUR 02-22 13:01
PROVIDERS: ADMIT Internal Medicine; ATTEND Internal Medicine
PROC: 0DB58ZX Excision of Esophagus, Via Natural or Artificial Opening Endoscopic, Diagnostic (ICD-10-PCS; principal; 2021-02-24 12:45)
PROC: 0DJD8ZZ Inspection of Lower Intestinal Tract, Via Natural or Artificial Opening Endoscopic (ICD-10-PCS; principal; 2021-02-24 12:45)
PROC: 0DB78ZX Excision of Stomach, Pylorus, Via Natural or Artificial Opening Endoscopic, Diagnostic (ICD-10-PCS; principal; 2021-02-24 12:45)
DX: I48.19 Other persistent atrial fibrillation (principal); K22.11 Ulcer of esophagus with bleeding; E87.1 Hypo-osmolality and hyponatremia; E87.3 Alkalosis; Z79.01 Long term (current) use of anticoagulants; D72.829 Elevated white blood cell count, unspecified; E86.0 Dehydration; E87.6 Hypokalemia; E87.8 Other disorders of electrolyte and fluid balance, not elsewhere classified; R11.2 Nausea with vomiting, unspecified; I08.1 Rheumatic disorders of both mitral and tricuspid valves; I10 Essential (primary) hypertension; I25.2 Old myocardial infarction; I27.20 Pulmonary hypertension, unspecified; K44.9 Diaphragmatic hernia without obstruction or gangrene; K29.70 Gastritis, unspecified, without bleeding; Z20.822 Contact with and (suspected) exposure to COVID-19; Z87.891 Personal history of nicotine dependence; Z79.82 Long term (current) use of aspirin; Z53.09 Procedure and treatment not carried out because of other contraindication; Z79.899 Other long term (current) drug therapy
CPT/HCPCS: 36415; 43239; 45378; 71046; 80048; 80053; 81001; 82272; 83605; 83735; 84484; 85025; 85027; 85610; 85730; 87040; 87635; 88305; 88312; 93005; 93306; 96361; 96365; 96366; 96367; 96375; 99291